=== PATIENT | female | born 1990 | race Caucasian/White ===

== ENCOUNTER 2024-04-25 01:08 | Emergency (ER) | payer OTHER ==
[~2024-04-25] VITALS: Ht 160 cm; Wt 61.4 kg
[2024-04-25 01:18] VITALS: BP 132/81; PULSE 115; RESP 14; TEMP 98.6; O2SAT 98
== END 2024-04-25 02:16 ==
LOC: ER 01:09
DX: F10.129 Alcohol abuse with intoxication, unspecified (principal); Y90.9 Presence of alcohol in blood, level not specified
CPT/HCPCS: 99283